=== PATIENT | female | born 1955 | race Caucasian/White ===

== ENCOUNTER → 2024-01-22 16:17 | Outpatient (REF) | payer OTHER, SELFPAY | LOC: HWWDC 16:17 | PROVIDERS: ATTENDING PHYSICIAN Nurse Practitioner Family | DX: Z12.31 Encounter for screening mammogram for malignant neoplasm of breast (principal) | CPT/HCPCS: 77063; 77067 ==

== ENCOUNTER 2024-05-03 20:25 | Emergency (ER) | payer OTHER, SELFPAY ==
[2024-05-03 20:27] VITALS: BP 145/71
--- NOTE | 2024-05-03 22:30 | ED.GENMED ---
History of Present Illness
General
Chief Complaint: Swelling
Source: patient
Exam Limitations: none
Time Seen by Provider: 05/03/24 22:02
Nursing documentation reviewed up to this point in time: agreed with
History of Present Illness
History of Present Illness:
This is a 69-year-old woman who has history of chronic venous insufficiency of lower extremities left greater than right for which she wears compression stockings sporadically.
She suffered a slip and fall over 6 weeks ago landing on her left knee with complaints of some left knee pain and swelling and since that fall has had increased swelling to her left lower extremity accompanied with some reddened thickened skin of
her left lower leg. She has not had a fever nor chills. She has been following with her primary care physician and was placed on a 10-day course of Keflex over 2 weeks ago with no relief of redness/swelling.
She did have an ultrasound of her left lower extremity that was negative for DVT but this was apparently over 3 weeks ago.
She was started on doxycycline 3 days ago by her primary care physician.
She was evaluated by [facility] orthopedics yesterday and had x-rays of her left knee that showed no evidence of fracture. Due to continued concern for cellulitis, patient states she was recommended by orthopedics yesterday to come to the ED for
further evaluation.
Patient has no prior history of DVT. She does note that left lower extremity is generally larger than right lower extremity.
She also notes prior history of cellulitis approximately 20 years ago which required 2-week hospital stay for IV antibiotics in which cellulitis/redness did not improve during those 2 weeks until she was changed to oral antibiotics then redness
eventually improved and she was discharged to home.
She has no history of immunocompromise, no history of diabetes.
She has not had a fever nor chills. No cough or chest pain nor shortness of breath nor dyspnea on exertion. Weight has been stable. She denies palpitations, no lightheadedness.
She has been ambulatory without difficulty.
She is concerned about ongoing left lower extremity swelling and lower leg redness as she has a planned cruise mid May.
Past History
Past History
ED Past Medical History: Hypothyroidism and Psychiatric (Depression)
ED Past Surgical History: Cholecystectomy
Social History
Tobacco: Non-smoker
Alcohol: None
Drug: None
Personal:
Living: with family
Employment: Employed
Family History
Family History: Other (Noncontributory)
Phy Exam
Physical Exam
Physical Exam:
GENERAL: 69-year-old woman appears her stated age, awake and alert, pleasant, appears in no acute distress. Afebrile.
EYE: anicteric
NECK: Supple, nontender, no meningismus, no significant adenopathy. No JVD.
ENT: oral mucosa is moist. No rhinorrhea.
CARDIAC: Regular rate and rhythm. no murmur.
LUNGS: Clear breath sounds bilaterally, no acute respiratory distress, no wheezes/rales/rhonchi
ABDOMEN: Soft, nondistended, without focal tenderness, normoactive BS.
NEUROLOGICAL: Alert and oriented x3, no focal neuro deficits.
SKIN: Warm and dry, normal color, good turgor.
MUSCULOSKELETAL: There is moderate +1 to +2 left lower extremity edema encompassing left dorsal foot with mild venous stasis skin thickening of mid to distal left lower leg with mild brawny erythema of the distal aspect of the left lower leg with
mild desquamation primarily posterior aspect but no vesicle formation, no palpable heat, no significant tenderness to palpation, no lymphangitis. There is very mild joint effusion of the left knee but no tenderness to palpation and full knee range
of motion without difficulty. Peripheral pulses are full and equal b/l. No palpable tenderness.
PSYCH: Normal and appropriate interaction.
Scores
Heart Failure Risk
Heart Failure Risk Score: Not Applicable
Course
Orders/Labs/Results
Orders:
Orders
05/03/24 22:25
US Periph Venous LOWER Ext LT Urgent
Comment:
Reason For Exam: LLE swelling redness after fall > 6 weeks ago.
05/03/24 22:33
Basic Metabolic Panel Urgent
CRP [C-Reactive Protein] Urgent
Complete Blood Count/With Diff Urgent
Abnormal Lab Results
05/03/24
22:33
RBC 3.69 L 10^6/uL
(4.20-5.40)
Hgb 11.0 L g/dL
(12.0-16.0)
Hct 31.9 L %
(37.0-47.0)
MPV 10.6 H fL
(7.4-10.4)
Creatinine 0.5 L mg/dL
(0.6-1.0)
Glucose 106 H mg/dl
(70-99)
05/03/24 22:33
05/03/24 22:33
Vital Signs
Initial and Last Documented VS:
Initial Vital Signs
Temp Pulse Resp BP Pulse Ox
98.8 F 81 18 145/71 99
05/03/24 20:27 05/03/24 20:27 05/03/24 20:27 05/03/24 20:27 05/03/24 20:27
Last Documented Vital Signs
Temp Pulse Resp BP Pulse Ox
98.8 F 76 16 117/94 96
05/03/24 20:27 05/03/24 22:38 05/03/24 22:38 05/03/24 22:38 05/03/24 22:38
MDM/Problems Addressed
Differential Diagnosis Includes:
Patient presents with left lower leg edema, redness, desquamation that began over 6 weeks ago after slip and fall onto her left knee.
She does have history of chronic venous insufficiency with mild chronic lower extremity edema left greater than right.
With ongoing erythema concern for a smoldering cellulitis versus venous stasis dermatitis.
She has no risk factors for CHF and nothing in history to suggest fluid overload.
Less likely DVT but also a consideration especially in light of injury 6 weeks ago.
DVT study reportedly negative but this was over 3 weeks ago, will repeat study tonight for completeness sake.
Will check labs, assess CBC, CRP. It is reassuring that patient has remained afebrile without significant pain.
*Radiology
Radiology exam reviewed: other (Venous Doppler ultrasound of left lower extremities negative for DVT.)
*Pulse Oximetry
Patient hypoxic: no
*Critical Care Note
Total Time (30-74mins, 75-104mins- exclusive of procedures): Not Applicable
Update Note
Update Note:
Labs are unremarkable with low normal white blood cell count, unremarkable chemistries. Negative CRP.
Venous Doppler negative for DVT.
I suspect venous stasis dermatitis and no convincing evidence of bacterial cellulitis.
Recommend she finish current course of antibiotic and discussed importance of daily moisturizer as well as daily use of compression stockings.
Elevate legs when seated.
Prompt follow-up with PCP.
Return precautions discussed.
ED Attending Note
-
Portions of this chart may have been created with voice recognition software.� Occasional wrong word or��sound alike� substitutions may have occurred due to the inherent limitations of voice recognition software.
Discharge Plan
Departure
Patient Disposition: Home (Routine Discharge)
Date of Disposition: 05/04/24
Time of Disposition: 00:16
Patient with high blood pressure during this ER visit?: No
Condition: Good
Discharge Problem:
Acute venous stasis dermatitis of left lower extremity
Instructions: Dependent Edema (DC)
Referrals:
Lesly Nguyen CRNP [Family Provider] - Call in 1-3 days for appt
Activity Restrictions/Additional Instructions:
Finish current course of antibiotic.
Where there is compression stockings on a daily basis.
Apply an emollient moisturizer to left leg rash on a daily basis such as Eucerin, Marylin, CeraVe.
Elevate legs when seated.
Follow-up with your primary care physician for recheck.
Interventions
Interventions:
*Risk Screen - Suicide Last Done: 05/03/24 20:27
*General Assessment Last Done: 05/03/24 20:27
*Neglect/Abuse Screening Last Done: 05/03/24 20:27
ED- Fall Risk Assessment Last Done: 05/03/24 22:22
*ED COVID-19 Vaccine History Last Done: 05/03/24 20:31
ED-Skin Assessment Last Done: 05/03/24 22:22
Discharge Date and Time
Print Language: NAMIBIAN
[2024-05-03 22:38] VITALS: BP 117/94; BMI 37.1
[2024-05-03 22:47] LABS: % Basophils 0.9 % (0-2); % Immature Granulocytes 0.2 % (0-0.5); % Lymphocytes 38.8 % (20.5-51.1); % Monocytes 7.7 % (1.7-9.3); % Neutrophils 50.4 % (42.2-75.2); Absolute Basophils 0.1 10^3/uL (0-0.2); Absolute Eosinophils 0.1 10^3/uL (0-0.7); Absolute Lymphocytes 2.1 10^3/uL (1.2-3.4); Absolute Monocytes 0.4 10^3/uL (0.1-0.6); Absolute Neutrophils 2.8 10^3/uL (1.4-6.5); Hematocrit 31.9 % (37.0-47.0); Mean Corp Hgb Conc. 34.5 g/dL (33.0-37.0); Mean Corpuscular Hgb 29.8 pg (27.0-31.0); Mean Corpuscular Volume 86.4 fL (81.0-99.0); Mean Platelet Volume 10.6 fL (7.4-10.4); Nucleated Red Blood Cells % 0 %; Platelet Count 196 10^3/uL (130-400); Red Blood Cell Count 3.69 10^6/uL (4.20-5.40); Red Cell Dist. Width 12.9 % (11.5-14.5); White Blood Cell Count 5.5 10^3/uL (4.8-10.8)
[2024-05-03 23:05] LABS: C-Reactive Protein < 5.00 mg/L (0.0-10.00)
[2024-05-03 23:10] LABS: Blood Urea Nitrogen 16 mg/dl (7-17); Calcium 9.3 mg/dl (8.4-10.2); Carbon Dioxide 28 mmol/L (22-30); Chloride 105 mmol/L (98-107); Estimated Creatinine Clearance 90 ml/min; Glucose 106 mg/dl (70-99); Sodium 137 mmol/L (135-145); eGFR > 60.00
--- NOTE | 2024-05-03 23:29 | EDRN ---
Updated patient on lab results and aware waiting to go over to ultrasound.
== END 2024-05-04 00:54 | disposition home or self-care (01) ==
LOC: EMR 20:25
PROVIDERS: EMERGENCY PHYSICIAN Emergency Medicine; FAMILY PHYSICIAN Nurse Practitioner Family
DX: I87.2 Venous insufficiency (chronic) (peripheral) (principal); E03.9 Hypothyroidism, unspecified; F32.A Depression, unspecified
CPT/HCPCS: 99284; 80048; 85025; 86140; 93971

== ENCOUNTER → 2024-07-01 06:19 | Day surgery (SDC) | payer OTHER, SELFPAY | LOC: GI 06:19 | PROVIDERS: ATTENDING PHYSICIAN Specialist; FAMILY PHYSICIAN Nurse Practitioner Family | DX: Z12.11 Encounter for screening for malignant neoplasm of colon (principal); D12.3 Benign neoplasm of transverse colon; K63.5 Polyp of colon | CPT/HCPCS: 45380; 88305 ==

== ENCOUNTER → 2025-04-16 13:08 | Outpatient (REF) | payer MEDICARE, SELFPAY | LOC: HWWDC 13:08 | PROVIDERS: ATTENDING PHYSICIAN Nurse Practitioner Family; REFERRING PHYSICIAN Obstetrics & Gynecology | DX: Z12.31 Encounter for screening mammogram for malignant neoplasm of breast (principal) | CPT/HCPCS: 77063; 77067 ==

== ENCOUNTER → 2025-11-04 12:00 | Outpatient (REF) | payer MEDICARE, SELFPAY | LOC: DHSLP 12:00 | PROVIDERS: ATTENDING PHYSICIAN Internal Medicine Critical Care Medicine; FAMILY PHYSICIAN Nurse Practitioner Family | DX: G47.33 Obstructive sleep apnea (adult) (pediatric) (principal) | CPT/HCPCS: 95800 ==